=== PATIENT | female | born 1960 | race Caucasian/White ===

== ENCOUNTER 2017-06-04 07:21 | Emergency (ER) | payer MEDICAID ==
[2017-06-04 07:25] VITALS: BMI 28.5
[2017-06-04 07:29] VITALS: RESP 20
--- NOTE | 2017-06-04 07:45 | C.PDOC ---
History Of Present Illness 56-year-old female, PMHx includes Anxiety, Asthma, Hypertension, Hypothyroidism , and Osteoporosis, presents to the emergency department with complaints of right foot pain s/p mechanical fall one week ago. Patient denies numbness/ weakness, nausea/vomiting, fevers or any other associated symptoms. No other complaints at this time. Time Seen by Provider: 06/04/17 07:41 Chief Complaint (Nursing): Lower Extremity Problem/Injury History Per: Patient History/Exam Limitations: no limitations Onset/Duration Of Symptoms: Days Current Symptoms Are (Timing): Still Present Severity: Moderate Past Medical History Reviewed: Historical Data, Nursing Documentation, Vital Signs Vital Signs: Last Vital Signs Temp 97.8 F 06/04/17 07:25 Pulse 97 H 06/04/17 07:25 Resp 20 06/04/17 07:25 BP 94/69 L 06/04/17 07:25 Pulse Ox 96 06/04/17 08:03 - Medical History PMH: Anxiety, Asthma, HTN, Hypothyroidism, Osteoporosis Family History: States: No Known Family Hx - Social History Hx Alcohol Use: No Hx Substance Use: No - Immunization History Hx Tetanus Toxoid Vaccination: No Hx Influenza Vaccination: No Hx Pneumococcal Vaccination: No Review Of Systems Constitutional: Negative for: Fever Musculoskeletal: Positive for: Foot Pain (Right) Skin: Negative for: Rash Neurological: Negative for: Weakness, Numbness Physical Exam - Physical Exam Appears: Non-toxic, No Acute Distress Skin: Warm, Dry, No Rash Extremity: Tenderness, Capillary Refill (<2 seconds), No Deformity, Swelling, Other (Right Foot: Mild swelling and tenderness to palpation. Painful range of motion. Pulses intact. ) Neurological/Psych: Oriented x3, Normal Speech ED Course And Treatment O2 Sat by Pulse Oximetry: 96 Medical Decision Making Medical Decision Making: r/o fx -pt endorsed, she tripped and fell, states mechanical. adolfo any syncope or otehr complaitns Disposition - Disposition Disposition: HOME/ ROUTINE Disposition Time: 08:21 Condition: STABLE Additional Instructions: please follow up with specialist. return to er with worsening ysmptoms or concerns. Prescriptions: Naproxen [Naprosyn] 500 mg PO BID PRN #14 tablet PRN Reason: Pain, Mild (1-3) Instructions: Foot Sprain (ED), Ankle Sprain (ED) - Clinical Impression Clinical Impression: Foot sprain - Scribe Statement The provider has reviewed the documentation as recorded by the Scribe (Brandie Pratt) All medical record entries made by the Scribe were at my direction and personally dictated by me. I have reviewed the chart and agree that the record accurately reflects my personal performance of the history, physical exam, medical decision making, and the department course for this patient. I have also personally directed, reviewed, and agree with the discharge instructions and disposition.
[2017-06-04] MEDS ORDERED: Naproxen 550 mg Tab PO STA (07:46)
[2017-06-04] MEDS ORDERED: Naproxen 550 mg Tab PO ONE (07:58)
--- NOTE | 2017-06-04 08:18 | RAD ---
PROCEDURE: Right Ankle Radiographs. HISTORY: trauma COMPARISON: None FINDINGS: BONES: No acute fracture. First metatarsal surgical screws/postsurgical changes noted JOINTS: Normal. No osteoarthritis. Ankle mortise maintained. Talar dome intact SOFT TISSUES: Normal. OTHER FINDINGS: None. IMPRESSION: Intact right ankle. First metatarsal surgical screws/postsurgical changes .
--- NOTE | 2017-06-04 08:22 | RAD ---
PROCEDURE: Right Foot Radiographs. HISTORY: trauma COMPARISON: None. FINDINGS: BONES: No acute fracture. First metatarsal deformity/healed osteotomy with 2 surgical screws placed. Hammertoe orientations. 2nd -3rd toe splaying. JOINTS: First metatarsal-phalangeal joint minimal osteoarthrosis SOFT TISSUES: Medial midfoot -hindfoot soft tissue swelling OTHER FINDINGS: Third metatarsal head squaring and chronicity unknown developmental variant versus atypical trace osteonecrosis (instead of 2nd metatarsal head) considerations. Developmental variant favored IMPRESSION: No acute fracture. Other findings as above
[2017-06-04 08:45] VITALS: BP 105/49; PULSE 74; TEMP 98; O2SAT 97
== END 2017-06-04 08:49 | disposition home or self-care (01) ==
LOC: C.ER 07:21
DX: S93.601A Unspecified sprain of right foot, initial encounter (principal); W01.0XXA Fall on same level from slipping, tripping and stumbling without subsequent striking against object, initial encounter; Y92.9 Unspecified place or not applicable

== ENCOUNTER 2017-06-06 05:49 | Emergency (ER) | payer MEDICAID ==
[2017-06-06 05:51] VITALS: BMI 28.5
--- NOTE | 2017-06-06 06:28 | C.PDOC ---
History Of Present Illness A 56 y/o F brought from [facility] pt states she was being harassed by other people at the [facility]. Pt verbalized at the [facility] that she wants to hurt herself. Denies self-harm in the ER. Also denies suicidal, homicidal ideation, or any physical complaint at this time. Time Seen by Provider: 06/06/17 06:42 Chief Complaint (Nursing): Anxiety History Per: Patient History/Exam Limitations: no limitations Onset/Duration Of Symptoms: Hrs Current Symptoms Are (Timing): Still Present Suicide/Self Injury Attempted (Context): None Severity: Mild Involuntary Hold By: None Recent travel outside of the [place]: No Additional History Per: Patient Past Medical History Reviewed: Historical Data, Nursing Documentation, Vital Signs Vital Signs: Last Vital Signs Temp 98.0 F 06/06/17 06:02 Pulse 110 H 06/06/17 06:02 Resp 16 06/06/17 06:02 BP 131/94 H 06/06/17 06:02 Pulse Ox 97 06/06/17 06:47 - Medical History PMH: Anxiety, Asthma, HTN, Hypothyroidism, Osteoporosis Family History: States: Unknown Family Hx - Social History Hx Alcohol Use: No Hx Substance Use: No - Immunization History Hx Tetanus Toxoid Vaccination: No Hx Influenza Vaccination: No Hx Pneumococcal Vaccination: No Review Of Systems Except As Marked, All Systems Reviewed And Found Negative. Constitutional: Negative for: Fever, Chills Gastrointestinal: Negative for: Nausea, Vomiting, Abdominal Pain, Diarrhea Psych: Negative for: Suicidal ideation, Other (Homicidal ideation) Physical Exam - Physical Exam Appears: Non-toxic, No Acute Distress Skin: Warm, Dry Head: Atraumatic, Normacephalic Cardiovascular: Rhythm Regular Respiratory: Normal Breath Sounds, No Accessory Muscle Use, No Rales, No Rhonchi , No Wheezing Gastrointestinal/Abdominal: Soft, No Tenderness Neurological/Psych: Oriented x3, Normal Speech, Normal Cognition, Other (No focal deficit) ED Course And Treatment O2 Sat by Pulse Oximetry: 97 (RA) Pulse Ox Interpretation: Normal Medical Decision Making Medical Decision Making: Impression: A 56 y/o F brought from [facility] pt states she was being harassed by other people at the [facility]. Plans: -Blood work up -UA Disposition - Disposition Disposition Time: 07:00 Condition: STABLE - Clinical Impression Clinical Impression: Anxiety - Scribe Statement The provider has reviewed the documentation as recorded by the Scribe Steffi cruz All medical record entries made by the Scribe were at my direction and personally dictated by me. I have reviewed the chart and agree that the record accurately reflects my personal performance of the history, physical exam, medical decision making, and the department course for this patient. I have also personally directed, reviewed, and agree with the discharge instructions and disposition.
[2017-06-06 06:44] LABS: BASO # 0.1 K/uL (0.0-0.2); BASO % 0.8 % (0.0-2.0); EOS # 0.1 K/uL (0.0-0.7); HEMOGLOBIN 12.5 g/dL (11.0-16.0); LYMPH # 2.1 K/uL (1.0-4.3); LYMPH % 21.5 % (20.0-40.0); MEAN CELL VOLUME 89.4 fL (81.0-99.0); MEAN CORPUSCULAR HEMOGLOBIN 30.6 pg (27.0-31.0); MEAN CORPUSCULAR HGB CONC 34.2 g/dL (33.0-37.0); MONO % 10.1 % (0.0-10.0); NEUT # 6.4 K/uL (1.8-7.0); NEUT % 66.6 % (50.0-75.0); RBC 4.08 Mil/uL (3.80-5.20); RED CELL DISTRIBUTION WIDTH 13.7 % (11.5-14.5); WHITE BLOOD COUNT 9.5 K/uL (4.8-10.8)
[2017-06-06 06:52] LABS: ALBUMIN 4.2 g/dL (3.5-5.0)
[2017-06-06 06:55] LABS: AST/SGOT 26 U/L (14-36); GFR AFRICAN-AMERICAN > 60; GFR NON-AFRICAN AMERICAN > 60
[2017-06-06 06:56] LABS: ALB/GLOB RATIO 1.4 (1.0-2.1); ALT/SGPT 32 U/L (9-52); BLOOD UREA NITROGEN 6 mg/dL (7-17); CALCIUM 9.5 mg/dl (8.6-10.4)
[2017-06-06 07:02] LABS: HCG,QUALITATIVE URINE NEGATIVE (NEGATIVE)
[2017-06-06 07:17] LABS: OPIATES, UR NEGATIVE (NEGATIVE)
[2017-06-06 07:18] LABS: PHENCYCLIDINE, UR NEGATIVE (NEGATIVE)
[2017-06-06 07:22] LABS: BARBITURATES, UR POSITIVE (NEGATIVE); BENZODIAZEPINES, UR POSITIVE (NEGATIVE)
[2017-06-06 11:27] LABS: SQUAMOUS EPITHIAL 5 /hpf (0-5); URINE BACTERIA OCC (<OCC); URINE BILIRUBIN NEGATIVE (NEGATIVE); URINE BLOOD 1+ (NEGATIVE); URINE CLARITY Clear (Clear); URINE COLOR Straw (YELLOW); URINE GLUCOSE (UA) NORMAL (Normal); URINE LEUKOCYTE ESTERASE 1+ Leu/uL (Negative); URINE NITRATE NEGATIVE (NEGATIVE); URINE PROTEIN NEGATIVE (NEGATIVE); URINE UROBILINOGEN NORMAL mg/dL (0.2-1.0)
[2017-06-06 12:36] VITALS: BP 140/71; PULSE 83; RESP 18; TEMP 98.2; O2SAT 99
== END 2017-06-06 10:56 | disposition home or self-care (01) ==
LOC: C.ER 05:49
DX: F41.9 Anxiety disorder, unspecified (principal)